=== PATIENT | female | born 1950 | race Caucasian/White ===

== ENCOUNTER 2020-06-08 08:15 | Outpatient (RCR) | payer MEDICARE, SELFPAY ==
[2020-06-08] MEDS: COVID-19 VACC, MRNA(PFIZER)/PF 30 MCG/0.3 ML SYRINGE IM (14:46)
[2020-06-29] MEDS: COVID-19 VACC, MRNA(PFIZER)/PF 30 MCG/0.3 ML SYRINGE IM (14:31)
== END 2020-06-08 23:59 ==
LOC: IMMUN 08:15
PROVIDERS: Visit Provider Family Medicine
DX: Z23 Encounter for immunization (principal)
CPT/HCPCS: 0001A; 0002A; 91300